=== PATIENT | male | born 1945 | race Caucasian/White ===

== ENCOUNTER 2020-11-29 05:18 | Inpatient (IN) | payer MEDICARE ==
[2020-11-22 17:02] LABS: BASOPHILS % (AUTO) 0.3 % (0-1); EOSINOPHILS # (AUTO) 0.1 X10'3 (0-0.9); EOSINOPHILS % (AUTO) 1.3 % (0-6); LYMPHOCYTES # (AUTO) 1.6 X10'3 (1.1-4.8); LYMPHOCYTES % (AUTO) 28.5 % (21-51); MEAN CORPUSCULAR HEMOGLOBIN 29.6 PG (27.0-31.0); MEAN CORPUSCULAR HGB CONC 33.3 g/dL (33.0-36.5); MEAN PLATELET VOLUME 8.8 FL (7.4-10.4); MONOCYTES # (AUTO) 0.6 X10'3 (0-0.9); MONOCYTES % (AUTO) 10.4 % (2-12); NEUTROPHILS # (AUTO) 3.4 X10'3 (1.8-7.7); NEUTROPHILS % (AUTO) 59.5 % (42-75); PRE OP HEMATOCRIT 35.7 % (42.0-52.0); PRE OP HEMOGLOBIN 11.9 g/dL (14.0-17.9); PRE OP PLATELET COUNT 183 X10'3 (140-440); RED BLOOD COUNT 4.02 X10'6 (4.70-6.10); RED CELL DISTRIBUTION WIDTH 14.4 % (11.5-14.5)
[2020-11-22 17:14] LABS: PRE OP INR 1.1 INR; PRE OP PROTIME 11.6 SECONDS (9.0-12.0)
[2020-11-22 17:19] LABS: ALBUMIN 3.7 G/DL (3.4-5.0); ALKALINE PHOSPHATASE 53 IU/L (46-116); BLOOD UREA NITROGEN 23 MG/DL (7-18); BUN/CREATININE RATIO 20.7 (5.4-32.0); CALCIUM 9.4 MG/DL (8.5-10.1); CHLORIDE 104 MMOL/L (99-107); CREATININE 1.11 MG/DL (0.60-1.10); PRE OP ALT 21 U/L (30-65); PRE OP ANION GAP 9 (8-16); PRE OP AST 13 U/L (10-37); PRE OP BILIRUB, TOTAL 0.3 MG/DL (0.0-1.0); PRE OP GLUCOSE 124 MG/DL (70-104); PRE OP SODIUM 140 MMOL/L (135-145); TOTAL CARBON DIOXIDE 27.3 MMOL/L (24-32); TOTAL PROTEIN 7.3 G/DL (6.4-8.2); eGFR 64 ML/MIN
[2020-11-22 17:30] LABS: HEMOGLOBIN A1C 7.4 % (4.5-6.2)
[~2020-11-29] VITALS: Ht 180.3 cm; Wt 92.7 kg
[2020-11-29] VITALS (27 sets, daily range): BP systolic 131–172; BP diastolic 72–106
[~2020-11-29 05:18] MED LIST: CITA20TA28 PO; FINA1TAB17 PO; METF500T PO; NITR0.4T51 SL; PRAV80TA3 PO; RIVA20TA PO; ZET10T PO; ringers solution, lacted 1,000 ML IV SCH
[2020-11-29] MEDS ORDERED: ceFAZolin 2gm in dextrose, iso 50 ML IV ONE (05:30)
[2020-11-29] MEDS ORDERED: famotidine 20mg tablet PO ONE (05:30)
[2020-11-29] MEDS ORDERED: LIDOcaine 1% (10mg/ml) 2ml vial ONE (05:54)
[2020-11-29] MEDS ORDERED: BUPIVAcaine/PF 2.5 mg/ml (0.25%) 30ml vial ONE (07:12)
[2020-11-29] MEDS ORDERED: epiNEPHrine 1 mg/ml inj ONE (07:12)
[2020-11-29] MEDS ORDERED: labetalol 20mg/4ml (5mg/ml) syringe IV PRN (07:15)
[2020-11-29] MEDS ORDERED: morphine 4 MG/ML inj SYRINge IV PRN (07:15)
[2020-11-29] MEDS ORDERED: ringers solution, lacted 1,000 ML IV SCH (07:15)
[2020-11-29] MEDS ORDERED: hydrALAZINE 20mg/ml inj. IV PRN (07:15)
[2020-11-29] MEDS ORDERED: fentaNYL/PF 50MCG/1 ML 2ML syringe IV PRN ×2 (07:15)
[2020-11-29] MEDS ORDERED: ondansetron/PF 4mg/2ml inj IV PRN (07:15)
[2020-11-29] MEDS ORDERED: morphine 2 MG/ML inj. syringe IV PRN (07:15)
[2020-11-29] MEDS ORDERED: MIDAZolam 1 MG/ML 5ML VIAL ONE (07:16)
[2020-11-29] MEDS ORDERED: fentaNYL /PF 50mcg/ml 5ml ampule ONE (07:20)
[2020-11-29] MEDS ORDERED: rocuronium 10mg/ml inj IV ONE ×3 (07:20→10:01)
[2020-11-29] MEDS ORDERED: propofol inj 20 ML IV ONE (07:20)
[2020-11-29] MEDS ORDERED: dexamethasone sod phosphate 4mg/ml inj. ONE (07:20)
[2020-11-29] MEDS ORDERED: LIDOcaine 2% (20mg/ml) 5ml vial ONE (07:20)
[2020-11-29] MEDS ORDERED: ondansetron/PF 4mg/2ml inj ONE (07:20)
[2020-11-29] MEDS ORDERED: sevoflurane 250ml liquid IH ONE (07:28)
[2020-11-29] MEDS ORDERED: fentaNYL/PF 50MCG/1 ML 2ML syringe ONE (10:02)
[2020-11-29] MEDS ORDERED: albumin (Human) 5% 250ml 250 ML IV ONE (11:37)
[2020-11-29] MEDS ORDERED: BUPIVAcaine/PF 2.5mg/ml (0.25%) 10ml vial ONE (11:48)
[2020-11-29] MEDS ORDERED: BUPIVACAINE liposomal/PF 13.3 MG/ML vial IM ONE (11:48)
[2020-11-29] MEDS ORDERED: neostigmine methylsulfate 1 MG/ML 10ml vial ONE (11:59)
[2020-11-29] MEDS ORDERED: glycopyrrolate 0.2mg/ml inj ONE (11:59)
--- NOTE | 2020-11-29 12:35 | NUR ---
Received from OR via BED, accompanied by Anesthesiologist and report given by Anesthesiologist. PATIENT IS AWAKE TO VOICE, SUPINE ON BED, RIGHT JAGULAR CENTRAL LINE IN PLACE, LR RUNNING, ARTERIAL LINE ON RIGHT FOREARM TRANSDUCER CONNECTED TO THE MONITOR, ON 10L O2 WITH MASK, TWO VERTICAL DRESSING ON RIGHT LOWER ABD AND GROIN WITH GUILHERME DRAIN WITH 25ML SANGUINEOUS DRAIN IN THE DRAIN, CONNECTED TO RIGHT GROIN AREA, DRESSING CDI, CAMACHO CATHETER IN PLACE WITH URINE OUTPUT OF 300ML YELLOW URINE IN BAG AT ARRIVAL. DENIES PAIN OR NAUSEA, WILL MONITOR.
--- NOTE | 2020-11-29 12:35 | NUR ---
Received from OR via BED, accompanied by Anesthesiologist and report given by Anesthesiologist. PATIENT IS LAYING IN BED, DENIES PAIN, BP AND HR IS HIGH, WILL ADMINISTER BP MED PER DR. BLANCAS, PIV 20G ON RIGHT WRIST SALINE LOCKED, ARTERIAL LINE ON RIGHT WRIST, RIGHT JAGULAR CENTRAL LINE IN PLACE WITH LR RUNNING, TWO VERTICAL DRESSING ON RIGHT ABD AND GROIN, GUILHERME DRAIN IN PLACE IN RIGHT GROIN, 20ML OF SANGUINOUS DRAINAGE IN GUILHERME DRAIN, CAMACHO CATHETER IN PLACE WITH ABOUT 250ML OF YELLOW URINE IN CAMACHO BAG, WILL MONITOR. Addendum: 11/29/20 at 1731 by Sherrill Mcpherson RN Amended: Links added.
[2020-11-29] MEDS ORDERED: zolpidem 5mg tablet PO PRN (12:40)
[2020-11-29] MEDS ORDERED: nitroGLYCERIN 0.4mg SUBLingual tab SL PRN (12:45)
[2020-11-29] MEDS ORDERED: MESSAGE TO PHARMACY PO ONE (12:50)
[2020-11-29] MEDS ORDERED: glucagon, human recombinant 1mg kit SUBCUT PRN (12:50)
[2020-11-29] MEDS ORDERED: dextrose 50%-water 50ml dispensing syringe IV PRN ×2 (12:50)
--- NOTE | 2020-11-29 14:31 | NUR ---
Patient in room PAS IN 900. I have received report from ANGELA PIMENTEL FROM RECOVERY and had the opportunity to ask questions and assume patient care.
--- NOTE | 2020-11-29 14:35 | NUR ---
PATIENT TRANSFERRED TO SURGICAL FLOOR, REPORT GIVEN TO TAMMY PIMENTEL OVER THE PHONE, VERTICAL DRESSING ON RIGHT LOWER ABD AND RIGHT GROIN CDI, GUILHERME DRAIN INTACT WITH SANGUINOUS DRAINAGE, CAMACHO CATHETER IN PLACE WITH YELLOW URINE WITH SLIGHT PINK URINE IN THE CATHETER DRAINING INTO CAMACHO BAG, RIGHT JAGULAR CENTRAL LINE WITH LR RUNNING AT 100ML/HR, PIV 20G ON RIGHT WRIST INTACT, ARTERIAL LINE D/C'D FROM RIGHT WRIST WITH NO COMPLICATIONS, BG WAS 196 WITH iSTAT RIGHT AFTER ARRIVAL TO RECOVERY ROOM, DR. BARRETT WAS NOTIFIED AT 1310, NO ACTION TAKEN AT THIS TIME PER DR'S ORDER. O2 3L NASAL CANNULA, TAKEN TO WITH ALL BELONGINGS WITH BED AND HOOKED UP TO MONITORS IN ROOM. RECEIVING NURSE TAMMY AT BEDSIDE, RAILS UP, BED LOW. Addendum: 11/29/20 at 1721 by Sherrill Mcpherson RN Amended: Links added.
--- NOTE | 2020-11-29 15:33 | NUR ---
Called Dr Iglesias regarding getting medication for HTN and pain meds. ALl were DC'ed.
[2020-11-29 16:06] LABS: ISTAT CREATININE 1.1 mg/dL (0.8-1.3); ISTAT HGB 10.9 g/dl (14.0-18.0); ISTAT IONIZED CALCIUM 1.08 mmol/L (1.03-1.32); ISTAT K 4.6 mmol/L (3.5-5.1); POC BUN/CREATININE RATIO 16.4 (5.4-32.0)
--- NOTE | 2020-11-29 17:00 | NUR ---
spoke to Dr Iglesias and notified him that pt has high BP, 1500-167/96, 1516-163/106 1700-171/99 HR varies from 80's to 120. Dr Iglesias states that if average is about 90 her is OK with it. also is going to put orders for pain meds since all pain meds were DC'ed.
[2020-11-29] MEDS: HYDROmorphone inj. 0.5 MG/0.5 ML DISP.SYRIN IV PRN ×2 (17:15→21:37)
--- NOTE | 2020-11-29 17:45 | NUR ---
Received from OR via BED, accompanied by Anesthesiologist and report given by Anesthesiologist. PATIENT IS AWAKE, LAYING ON BED SUPINE, RAILS UP, PIV ON RIGHT AC 20G LR RUNNING. NO DRESSING PRESENT, DENIES PAIN, WILL MONITOR. Addendum: 11/29/20 at 1803 by Sherrill Mcpherson RN Amended: Links added. Addendum: 11/29/20 at 1804 by Sherrill Mcpherson RN WRONG PATIENT'S NOTE
--- NOTE | 2020-11-29 18:11 | NUR ---
Spoke to Dr Warner, center receptionist for [facility]. Pt had a coughing fit and felt he had pain on his incision. There was fresh red blood on his dressing, New blood on dressing marked. Dr Warner advised to put a pressure dressing since bleeding noted was only on the 1st staple of top of incision below umbilicus, steady drip. Pressure dressing applied. Pt educated again on splinting when coughing with a pillow. Pt painful. Report and updates given to Mario Alberto Tran as well as Brook Doe primary nurse.
--- NOTE | 2020-11-29 18:35 | NUR ---
Problems reprioritized. Patient report given, questions answered & plan of care reviewed with Brook Doe RN.
--- NOTE | 2020-11-29 18:40 | NUR ---
Patient in room [facility]A 347. I have received report from TAMMY PIMENTEL and had the opportunity to ask questions and assume patient care.
[2020-11-29] MEDS: docusate sod 100mg capsule PO SCH (20:10)
[2020-11-29] MEDS: ondansetron/PF 4mg/2ml inj IV PRN (20:16)
[2020-11-29] MEDS: insulin glargine (Lantus) pen - multi-dose SQ SCH (21:24)
[2020-11-30] VITALS: BP 124/68
[2020-11-30] MEDS: HYDROmorphone inj. 0.5 MG/0.5 ML DISP.SYRIN IV PRN (03:11)
[2020-11-30 04:00] VITALS: BP 146/78
--- NOTE | 2020-11-30 06:30 | NUR ---
Patient in room [facility]A 347. I have received report from Brook Doe RN and had the opportunity to ask questions and assume patient care.
--- NOTE | 2020-11-30 06:30 | NUR ---
Problems reprioritized. Patient report given, questions answered & plan of care reviewed with DORON PIMENTEL.
[2020-11-30 07:01] LABS: BASOPHILS % (AUTO) 0.1 % (0-1); EOSINOPHILS % (AUTO) 0.1 % (0-6); HEMATOCRIT 32.7 % (42.0-52.0); HEMOGLOBIN 10.9 g/dl (14.0-17.9); LYMPHOCYTES # (AUTO) 1.1 X10'3 (1.1-4.8); LYMPHOCYTES % (AUTO) 13.4 % (21-51); MEAN CORPUSCULAR HEMOGLOBIN 29.8 PG (27.0-31.0); MEAN CORPUSCULAR HGB CONC 33.3 g/dL (33.0-36.5); MEAN CORPUSCULAR VOLUME 89.4 FL (78-98); MEAN PLATELET VOLUME 8.7 FL (7.4-10.4); MONOCYTES % (AUTO) 11.8 % (2-12); NEUTROPHILS # (AUTO) 6.2 X10'3 (1.8-7.7); NEUTROPHILS % (AUTO) 74.6 % (42-75); PLATELET COUNT 160 X10'3 (140-440); RED BLOOD COUNT 3.65 X10'6 (4.70-6.10); RED CELL DISTRIBUTION WIDTH 14.6 % (11.5-14.5); WHITE BLOOD COUNT 8.3 X10'3 (4.5-11.0)
--- NOTE | 2020-11-30 07:15 | NUR ---
Patient in room [facility] 347. I have received report from NATASHA PIMENTEL and had the opportunity to ask questions and assume patient care.
[2020-11-30 07:20] LABS: ALBUMIN 3.4 G/DL (3.4-5.0); ANION GAP 11 (8-16); BLOOD UREA NITROGEN 22 MG/DL (7-18); BUN/CREATININE RATIO 13.1 (5.4-32.0); CALCIUM 8.3 MG/DL (8.5-10.1); CHLORIDE 105 MMOL/L (99-107); CREATININE 1.68 MG/DL (0.60-1.10); GLUCOSE 140 MG/DL (70-104); POTASSIUM 4.4 MMOL/L (3.5-5.1); SODIUM 140 MMOL/L (135-145); TOTAL CARBON DIOXIDE 23.6 MMOL/L (24-32); eGFR 40 ML/MIN
[2020-11-30 08:00] VITALS: BP 152/77
[2020-11-30] MEDS: docusate sod 100mg capsule PO SCH ×2 (08:09→20:45)
[2020-11-30] MEDS: citalopram 20mg tablet PO SCH (08:09)
[2020-11-30] MEDS: finasteride 5mg tablet PO SCH (08:09)
[2020-11-30] MEDS: HYDROmorphone 1 mg/ml syringe IV PRN ×3 (08:14→21:02)
--- NOTE | 2020-11-30 09:35 | NUR ---
Pt with A1c 7.4%, DM education not warranted at this time given well controlled for age. Will continue to follow. Addendum: 11/30/20 at [address] Amended: Links added.
[2020-11-30] MEDS: insulin Lispro (HumaLOG) vial - multi-dose SQ SCH ×2 (10:21→13:38)
[2020-11-30 11:00] VITALS: BP 108/61
--- NOTE | 2020-11-30 16:56 | NUR ---
patient ambulated x2 second time patient appeared SOB Dr bravo notified, order clarified that patient is on sips only of clear liquids .fluids also changed to LR@75mls/hr. Interrnal jugular DC'd intact per protocol. PIV infusing in RFA. Kvng drain 25mls drainage sero sang . dressing to abdomen no new drainage seen by Dr bravo. dilaudid given x2 for pain with effect.
[2020-11-30] MEDS: ringers solution, lacted 1,000 ML IV SCH (17:35)
--- NOTE | 2020-11-30 18:34 | NUR ---
staff reiterated to patient only sips. patient had an order in for clear liquids and was receiving trays, clear lqd order cancelled to ensure patient didnt receive any more trays.and that staff will bring fluids to patient so as to more carefully monitor, patient compliant . Report given to NATASHA PIMENTEL
--- NOTE | 2020-11-30 18:35 | NUR ---
Patient in room [facility]A 347. I have received report from DORON PIMENTEL and had the opportunity to ask questions and assume patient care.
[2020-11-30 20:00] VITALS: BP 108/58
[2020-11-30] MEDS: insulin glargine (Lantus) pen - multi-dose SQ SCH (20:57)
[2020-11-30] MEDS: ondansetron/PF 4mg/2ml inj IV PRN (21:08)
[2020-12-01] VITALS: BP 117/72
[2020-12-01] MEDS: ringers solution, lacted 1,000 ML IV SCH ×2 (01:47→16:13)
[2020-12-01] MEDS: HYDROmorphone 1 mg/ml syringe IV PRN ×2 (02:18→08:04)
--- NOTE | 2020-12-01 06:30 | NUR ---
Problems reprioritized. Patient report given, questions answered & plan of care reviewed with DORON PIMENTEL.
[2020-12-01 06:32] LABS: BASOPHILS % (AUTO) 0.1 % (0-1); EOSINOPHILS % (AUTO) 0.1 % (0-6); HEMATOCRIT 33.9 % (42.0-52.0); HEMOGLOBIN 11.3 g/dl (14.0-17.9); LYMPHOCYTES # (AUTO) 0.7 X10'3 (1.1-4.8); LYMPHOCYTES % (AUTO) 6.8 % (21-51); MEAN CORPUSCULAR HEMOGLOBIN 29.7 PG (27.0-31.0); MEAN CORPUSCULAR HGB CONC 33.3 g/dL (33.0-36.5); MEAN CORPUSCULAR VOLUME 89.3 FL (78-98); MEAN PLATELET VOLUME 8.9 FL (7.4-10.4); MONOCYTES # (AUTO) 1.1 X10'3 (0-0.9); MONOCYTES % (AUTO) 10.9 % (2-12); NEUTROPHILS # (AUTO) 8.1 X10'3 (1.8-7.7); NEUTROPHILS % (AUTO) 82.1 % (42-75); PLATELET COUNT 154 X10'3 (140-440); RED CELL DISTRIBUTION WIDTH 15.2 % (11.5-14.5); WHITE BLOOD COUNT 9.9 X10'3 (4.5-11.0)
--- NOTE | 2020-12-01 06:38 | NUR ---
Patient in room [facility] 347. I have received report from NATASHA PIMENTEL and had the opportunity to ask questions and assume patient care.
[2020-12-01 06:48] LABS: ALBUMIN 3.3 G/DL (3.4-5.0); ANION GAP 11 (8-16); BLOOD UREA NITROGEN 22 MG/DL (7-18); BUN/CREATININE RATIO 12.4 (5.4-32.0); CALCIUM 8.6 MG/DL (8.5-10.1); CHLORIDE 100 MMOL/L (99-107); CREATININE 1.77 MG/DL (0.60-1.10); GLUCOSE 179 MG/DL (70-104); POTASSIUM 4.3 MMOL/L (3.5-5.1); SODIUM 136 MMOL/L (135-145); TOTAL CARBON DIOXIDE 25.4 MMOL/L (24-32); eGFR 38 ML/MIN
[2020-12-01 07:00] VITALS: BP 134/74
[2020-12-01] MEDS: citalopram 20mg tablet PO SCH (08:03)
[2020-12-01] MEDS: docusate sod 100mg capsule PO SCH ×2 (08:03→19:51)
[2020-12-01] MEDS: finasteride 5mg tablet PO SCH (08:03)
[2020-12-01] MEDS: insulin Lispro (HumaLOG) vial - multi-dose SQ SCH ×2 (09:19→13:37)
[2020-12-01] MEDS ORDERED: potassium Cl 40MEQ/1/2NS 520ml 520 ML IV PRN (10:05)
[2020-12-01] MEDS ORDERED: magnesium 4gm in 100ml NS 100 ML IV PRN (10:05)
[2020-12-01 10:46] LABS: MAGNESIUM 1.8 MG/DL (1.5-2.4); POTASSIUM 4.2 MMOL/L (3.5-5.1)
[2020-12-01 11:00] VITALS: BP 113/87
--- NOTE | 2020-12-01 11:05 | NUR ---
patient seen by Dr Iglesias order given for NPO with only use of oral swabs. Apparently evening tray had been given of clear liquids despite notice posted for sips and chips. patient appears much more rested today, able to ambulate 300ft without stopping. VSS. will continue to monitor .
--- NOTE | 2020-12-01 13:23 | NUR ---
DM Consult: Addressed; see prior RD note. Addendum: 12/01/20 at [address] Amended: Links added.
[2020-12-01] MEDS: HYDROmorphone inj. 0.5 MG/0.5 ML DISP.SYRIN IV PRN ×2 (13:42→21:21)
[2020-12-01] MEDS: ceFAZolin/D5W- 1GM premix 50 ML IV SCH (16:19)
[2020-12-01 18:00] VITALS: BP 120/70
--- NOTE | 2020-12-01 18:12 | NUR ---
Received report from MARGARITO Triana and had the opportunity to ask questions and assume patient care. Call light and items of frequent use within reach. In no apparent distress. Will continue to monitor.
--- NOTE | 2020-12-01 18:20 | NUR ---
Problems reprioritized. Patient report given, questions answered & plan of care reviewed with lady PIMENTEL.
[2020-12-01] MEDS: K and/or MAG REPLACEMENT MC SCH (19:52)
[2020-12-01] MEDS: insulin glargine (Lantus) pen - multi-dose SQ SCH (21:27)
[2020-12-02] VITALS: BP 148/76
[2020-12-02] MEDS: ceFAZolin/D5W- 1GM premix 50 ML IV SCH ×3 (00:32→16:16)
[2020-12-02] MEDS: HYDROmorphone inj. 0.5 MG/0.5 ML DISP.SYRIN IV PRN ×3 (04:28→19:54)
[2020-12-02] MEDS: ringers solution, lacted 1,000 ML IV SCH (05:32)
[2020-12-02 06:10] LABS: BASOPHILS % (AUTO) 0.4 % (0-1); EOSINOPHILS # (AUTO) 0.1 X10'3 (0-0.9); EOSINOPHILS % (AUTO) 0.8 % (0-6); HEMATOCRIT 33.6 % (42.0-52.0); HEMOGLOBIN 11.2 g/dl (14.0-17.9); LYMPHOCYTES # (AUTO) 0.9 X10'3 (1.1-4.8); LYMPHOCYTES % (AUTO) 14.1 % (21-51); MEAN CORPUSCULAR HEMOGLOBIN 29.9 PG (27.0-31.0); MEAN CORPUSCULAR HGB CONC 33.2 g/dL (33.0-36.5); MEAN CORPUSCULAR VOLUME 89.9 FL (78-98); MEAN PLATELET VOLUME 8.6 FL (7.4-10.4); MONOCYTES # (AUTO) 0.6 X10'3 (0-0.9); MONOCYTES % (AUTO) 9.2 % (2-12); NEUTROPHILS # (AUTO) 5.1 X10'3 (1.8-7.7); NEUTROPHILS % (AUTO) 75.5 % (42-75); PLATELET COUNT 133 X10'3 (140-440); RED BLOOD COUNT 3.74 X10'6 (4.70-6.10); RED CELL DISTRIBUTION WIDTH 14.6 % (11.5-14.5); WHITE BLOOD COUNT 6.7 X10'3 (4.5-11.0)
[2020-12-02 06:38] LABS: ANION GAP 11 (8-16); BLOOD UREA NITROGEN 20 MG/DL (7-18); BUN/CREATININE RATIO 12.7 (5.4-32.0); CALCIUM 8.6 MG/DL (8.5-10.1); CHLORIDE 103 MMOL/L (99-107); CREATININE 1.57 MG/DL (0.60-1.10); GLUCOSE 129 MG/DL (70-104); MAGNESIUM 1.9 MG/DL (1.5-2.4); POTASSIUM 3.9 MMOL/L (3.5-5.1); SODIUM 139 MMOL/L (135-145); TOTAL CARBON DIOXIDE 25.1 MMOL/L (24-32); eGFR 43 ML/MIN
--- NOTE | 2020-12-02 06:45 | NUR ---
Patient in room ROSA 347B. I have received report from MARGARITO ROSAS and had the opportunity to ask questions and assume patient care.
[2020-12-02] MEDS ORDERED: bisacodyl 10mg suppository rectal RC STA (06:52)
[2020-12-02 07:00] VITALS: BP 127/83
[2020-12-02] MEDS: K and/or MAG REPLACEMENT MC SCH ×2 (08:00→20:00)
[2020-12-02] MEDS: citalopram 20mg tablet PO SCH (08:02)
[2020-12-02] MEDS: docusate sod 100mg capsule PO SCH ×2 (08:03→19:48)
[2020-12-02] MEDS: finasteride 5mg tablet PO SCH (08:33)
[2020-12-02 11:00] VITALS: BP 170/87
--- NOTE | 2020-12-02 18:00 | NUR ---
Dr Iglesias notified of pea sized tissue noted between two sofia on abd. incision. States he is aware and watching area. No fluid drainage noted.
--- NOTE | 2020-12-02 18:42 | NUR ---
Patient in room [facility] 347. I have received report from TOÑO PIMENTEL and had the opportunity to ask questions and assume patient care. Addendum: 12/02/20 at 1843 by Funmi Ca RN Amended: Links added.
--- NOTE | 2020-12-02 19:18 | NUR ---
Problems reprioritized. Patient report given, questions answered & plan of care reviewed with MARGARITO LAUREN.
--- NOTE | 2020-12-02 19:19 | NUR ---
Student documentation: I have reviewed and agree with all interventions, assessments performed and documented by EDUARDO NAVARRO.
[2020-12-02 19:33] VITALS: BP 135/73
[2020-12-02] MEDS: lactobacillus rhamnosus 10,000 MMU CELLS/CAPSULE PO SCH (19:48)
--- NOTE | 2020-12-02 19:50 | NUR ---
PT MEDICATED FOR PAIN WITH IV DILADID.
[2020-12-02] MEDS: insulin glargine (Lantus) pen - multi-dose SQ SCH (21:08)
--- NOTE | 2020-12-02 21:35 | NUR ---
UP WITH ASSIST AMBULATED IN THE [place] USING IS AND FLUTTER VALVE WELL.
--- NOTE | 2020-12-02 23:30 | NUR ---
pt passed a small amt of gas.
[2020-12-03] VITALS: BP 145/85
[2020-12-03] MEDS: ringers solution, lacted 1,000 ML IV SCH ×2 (02:01→17:57)
[2020-12-03] MEDS: ceFAZolin/D5W- 1GM premix 50 ML IV SCH ×3 (02:02→17:57)
[2020-12-03] MEDS: HYDROmorphone inj. 0.5 MG/0.5 ML DISP.SYRIN IV PRN (04:43)
--- NOTE | 2020-12-03 04:46 | NUR ---
rolando márquez/shanna medicated for it with iv diladid using flutter valve and is unit.
--- NOTE | 2020-12-03 06:07 | NUR ---
Problems reprioritized. Patient report given, questions answered & plan of care reviewed with TOÑO PIMENTEL. Addendum: 12/03/20 at 0608 by Funmi Ca RN Amended: Links added.
--- NOTE | 2020-12-03 06:52 | NUR ---
Patient in room ROSA 347B. I have received report from MARGARITO LAUREN and had the opportunity to ask questions and assume patient care.
[2020-12-03 07:00] VITALS: BP 165/85
[2020-12-03 07:33] LABS: POTASSIUM 3.8 MMOL/L (3.5-5.1)
[2020-12-03] MEDS: citalopram 20mg tablet PO SCH (08:00)
[2020-12-03] MEDS: K and/or MAG REPLACEMENT MC SCH ×2 (08:00→20:00)
[2020-12-03] MEDS: lactobacillus rhamnosus 10,000 MMU CELLS/CAPSULE PO SCH ×2 (08:00→20:52)
[2020-12-03] MEDS: finasteride 5mg tablet PO SCH (08:00)
[2020-12-03] MEDS: docusate sod 100mg capsule PO SCH ×2 (08:00→20:52)
[2020-12-03 11:00] VITALS: BP 135/79
--- NOTE | 2020-12-03 18:25 | NUR ---
Problems reprioritized. Patient report given, questions answered & plan of care reviewed with JORDAN ORTEGA RN.
--- NOTE | 2020-12-03 18:30 | NUR ---
Patient in room [facility] 347. I have received report from TOÑO PIMENTEL and had the opportunity to ask questions and assume patient care.
[2020-12-03 20:00] VITALS: BP 155/90
[2020-12-03] MEDS: insulin glargine (Lantus) pen - multi-dose SQ SCH (21:00)
[2020-12-04] VITALS: BP 167/98
[2020-12-04] MEDS: ceFAZolin/D5W- 1GM premix 50 ML IV SCH ×2 (00:46→07:53)
[2020-12-04] MEDS: HYDROmorphone inj. 0.5 MG/0.5 ML DISP.SYRIN IV PRN (02:28)
--- NOTE | 2020-12-04 06:30 | NUR ---
Patient in room [facility] 347. I have received report from ELIZABETH PIMENTEL and had the opportunity to ask questions and assume patient care. Addendum: 12/04/20 at 0632 by Kaylyn Watters RN WRONG ENTRY
--- NOTE | 2020-12-04 06:32 | NUR ---
Problems reprioritized. Patient report given, questions answered & plan of care reviewed with ELIZABETH PIMENTEL.
[2020-12-04 07:16] LABS: POTASSIUM 3.7 MMOL/L (3.5-5.1)
[2020-12-04 07:27] VITALS: BP 136/85
[2020-12-04] MEDS: lactobacillus rhamnosus 10,000 MMU CELLS/CAPSULE PO SCH (07:49)
[2020-12-04] MEDS: docusate sod 100mg capsule PO SCH (07:49)
[2020-12-04] MEDS: finasteride 5mg tablet PO SCH (07:49)
[2020-12-04] MEDS: citalopram 20mg tablet PO SCH (07:50)
[2020-12-04] MEDS: K and/or MAG REPLACEMENT MC SCH (08:00)
[2020-12-04] MEDS: insulin Lispro (HumaLOG) vial - multi-dose SQ SCH (09:07)
[2020-12-04] MEDS ORDERED: CEPH250T PO (09:42)
[2020-12-04] MEDS ORDERED: HYDR-3965 PO (09:42)
[2020-12-04] MEDS ORDERED: DOCU-148 PO (09:42)
[2020-12-04 12:13] VITALS: BP 132/93
--- NOTE | 2020-12-04 13:40 | NUR ---
I have reviewed and agree with all medications administered and interventions performed by [facility] Student Will
--- NOTE | 2020-12-04 13:40 | NUR ---
Reviewed discharge paperwork with Pt and Pt's . They had the opportunity to ask questions. Educated Pt and on infection control on catheter and abdominal bandage, the s/s to look for incase of infection and steps to follow, medications and possible adverse side effects, gave a week worth extra supplies for dressing and catheter change. Discussed F/U appointment with Dr. Iglesias, Pt already has appointment but contact information provided. IV discontinued, catheter intact and pressure bandage applied. Pt took all his belongings and was escorted by student nurse to 's vehicle outside the hospital and discharged home.
--- NOTE | 2020-12-05 13:50 | NUR ---
CASE MANAGEMENT DISCHARGE FOLLOW UP: Spoke with pt and his via telephone. She states that he is doing really well, eating well, and doing well with indwelling urinary catheter care. Pt reports minimal pain, states 0/10 at this time, some small drainage from midline incision but states MD is aware, denies purulent discharge, fever/other s/sx of infection; denies CP, SOB, bleeding. Pt states that he did have a BM today without complication. Pt also admits to some lingering swelling BLE, states elevating his feet while at rest and that he is currently sleeping at night in his recliner with feet elevated to help with swelling. Upon inquiry, pt states urine in catheter bag is clear with no blood or foul odor. Verbalizes understanding of s/sx requiring further evaluation/emergent assistance. Verbalizes understanding of new and current medications, states not taking the [place] as it is currently not needed but understands to take if pain level is too high. Verbalizes compliance with MD discharge instructions, states that he is ambulating at least 4x/day. Verbalizes understanding of the importance in making/keeping follow-up appointments, has f/u appt with urologist next week 12/12/20. States no further questions/concerns at this time.
== END 2020-12-04 13:29 | disposition home or self-care (01) | DRG 654 ==
LOC: UNDOADMIN 05:18 → PAS IN 05:18 → SUR 3N 12:37
PROVIDERS: ADMIT Urology; ATTEND Urology
PROC: 0TB64ZZ Excision of Right Ureter, Percutaneous Endoscopic Approach (ICD-10-PCS; 2020-11-29)
PROC: 0TT00ZZ Resection of Right Kidney, Open Approach (ICD-10-PCS; 2020-11-29)
PROC: 0TT60ZZ Resection of Right Ureter, Open Approach (ICD-10-PCS; 2020-11-29)
PROC: 0TB04ZZ Excision of Right Kidney, Percutaneous Endoscopic Approach (ICD-10-PCS; 2020-11-29)
PROC: 0W9F30Z Drainage of Abdominal Wall with Drainage Device, Percutaneous Approach (ICD-10-PCS; 2020-11-29)
PROC: 02HV33Z Insertion of Infusion Device into Superior Vena Cava, Percutaneous Approach (ICD-10-PCS; 2020-11-29)
PROC: B548ZZA Ultrasonography of Superior Vena Cava, Guidance (ICD-10-PCS; 2020-11-29)
PROC: 0TBB0ZZ Excision of Bladder, Open Approach (ICD-10-PCS; principal; 2020-11-29 07:28)
DX: C65.1 Malignant neoplasm of right renal pelvis (principal); K56.7 Ileus, unspecified; K66.0 Peritoneal adhesions (postprocedural) (postinfection); Z88.1 Allergy status to other antibiotic agents; Z79.01 Long term (current) use of anticoagulants; Z79.84 Long term (current) use of oral hypoglycemic drugs; Z88.8 Allergy status to other drugs, medicaments and biological substances
CPT/HCPCS: 36415; 71045; 71046; 74018; 80047; 80048; 80053; 82948; 83036; 83735; 84132; 85025; 85610; 85730; 86885; 86900; 86901; 86920; 87081; 93005; A4215; A4618; A7000; C1758; C9290; G0378; J0171; J0690; J1100; J1170; J1815; J2001; J2250; J2270; J2405; J2704; J2710; J3010; J3490; J7030; J7040; J7120; P9045; U0003

== ENCOUNTER 2025-01-19 08:41 | Outpatient (CLI) | payer MEDICARE ==
[~2025-01-19 08:41] MED LIST changes: +APIX5TAB3 PO; +CITA-178 PO; -CITA20TA28 PO; +EZET10TA7 PO; +FINA1TAB13 PO; -FINA1TAB17 PO; +NITR0.4T48 PO; -NITR0.4T51 SL; -RIVA20TA PO; -ZET10T PO; -ringers solution, lacted 1,000 ML IV SCH
--- NOTE | 2025-01-20 07:10 | CARDIOLOGY REPORT ---
APPROVED REPORT EXAM: Comprehensive 2D, Doppler, and color-flow Echocardiogram. Patient Location: OUT-PATIENT Blood Pressure: 97/61 mmHg Heart Rate: 84 bpm Indications Congestive Heart Failure Hx of CABG x 2 HARDENER HELPER: Shirley Obando MD Previous ECHO Unavailable 2D Dimensions RVDd 5.1 cm LA Diam7.2 cm IVSd 1.0 (0.7-1.1cm) LVDd 4.8 cm PWd 1.3 (0.7-1.1cm) RA Major7.9 cm IVSs 1.7 (0.8-1.2cm) RA Minor9.8 cm LVDs 2.9 (2.5-4.0cm) PWs 1.5 (0.8-1.2cm) LVOT Diameter 1.89 (1.8-2.4cm) LVEF(%) 69.6 (>50%) Ao Asc Diam.3.33 cmIVC 28.86 mm FS (%) 39.2 % SV 73.4 ml M-Mode Dimensions Left Atrium(MM) 7.12 (2.5-4.0cm) Aortic Root 2.53 (2.2-3.7cm) Aortic Cusp Exc 0.96 (1.5-2.0cm) MV EPSS 0.7 (<0.5cm) Aortic Valve AoV Peak Rodrigo. 303.6 cm/s AoV VTI 44.5 cm AO Peak GR. 36.9 mmHg AO Mean GR. 21 mmHg LVOT VTI 23.32 cm LVOT Peak Rodrigo. 119.1 cm/s ADRI (VMAX) 1.11 cm2 ADRI (VTI) 1.11 cm2 AI P 1/2 Time 325 ms Mitral Valve MV E Velocity 123.1 cm/s MV Peak Gr. 10 mmHg MV DECEL TIME 192 ms MV A Velocity 33.4 cm/s MV Mean Gr. 4 mmHg MV PHT 79 ms E/A Ratio 3.7 MVA (PHT) 2.79 cm2 MV VMean89.3 cm/sMVA VTI2.22 cm2 MV VTI29.6 cm TDI E/Medial E' 9.5 Pulmonary Valve PV Peak Velocity 184.6 cm/s PV Peak Grad. 14 mmHg Tricuspid Valve TR P. Velocity 225 cm/s RAP ESTIMATE 10 mmHg TR Peak Gr. 20 mmHg RVSP 30 mmHg LEFT VENTRICLE The left ventricle is normal size with mild posterior wall thickening. Overall systolic function is n ormal. Flattened septum consistent with right ventricular volume and pressure overload. LVEF is 65%. RIGHT VENTRICLE Right ventricle is severely dilated. ATRIA Left atrium is severely dilated. Right atrium is severely dilated. AORTIC VALVE Trileaflet AV appears mildly sclerotic with moderate stenosis. ADRI is measured at 1.11 cmsq. Peak / m brittany gradients of 37 / 21 mmHG. Peak velocity is measured at 3.04 m/sec. Trace insufficiency. MITRAL VALVE Mild mitral annular calcification with mild stenosis. Peak / mean gradient are 10 / 4 mmHg. Peak velo city is 1.23 m/s. Mild to moderate eccentric regurgitation posteriorly directed. TRICUSPID VALVE The tricuspid valve is normal in structure with severe regurgitation. PULMONIC VALVE The pulmonary valve is normal in structure with trace insufficieincy. GREAT VESSELS The aortic root is normal in size. The ascending aorta is normal in size. IVC is dilated and collapse s greater than 50% with inspiration. PERICARDIUM Trivial loculated pericardial effusion present without hemodynamic compromise. Pleural effusion prese nt. Other Information Study Quality: Adequate Conclusion The left ventricle is normal size with mild posterior wall thickening. Overall systolic function is n ormal. Flattened septum consistent with right ventricular volume and pressure overload. LVEF is 65%. Right ventricle is severely dilated. Left atrium is severely dilated. Right atrium is severely dilated. Trileaflet AV appears mildly sclerotic with moderate stenosis. ADRI is measured at 1.11 cmsq. Peak / mean gradients of 37 / 21 mmHG. Peak velocity is measured at 3.04 m/sec. Trace insufficiency. Mild mitral annular calcification with mild stenosis. Peak / mean gradient are 10 / 4 mmHg. Peak ve locity is 1.23 m/s. Mild to moderate eccentric regurgitation posteriorly directed. The tricuspid valve is normal in structure with severe regurgitation. The pulmonary valve is normal in structure with trace insufficieincy. Trivial loculated pericardial effusion present without hemodynamic compromise.
== END 2025-01-19 23:59 | disposition home or self-care (01) ==
LOC: CARD DIAG 08:41
PROVIDERS: ATTEND Internal Medicine Cardiovascular Disease
DX: I08.3 Combined rheumatic disorders of mitral, aortic and tricuspid valves (principal); I50.9 Heart failure, unspecified
CPT/HCPCS: 93306